=== PATIENT | female | born 1950 | race Caucasian/White ===

== ENCOUNTER 2018-04-11 08:06 | Outpatient (CLI) | payer MEDICARE | END 2018-04-11 08:07 | disposition home or self-care (01) | LOC: BICMAMMO 08:06 | PROVIDERS: ATTEND Family Medicine | DX: Z12.31 Encounter for screening mammogram for malignant neoplasm of breast (principal) | CPT/HCPCS: 77063; 77067 ==

== ENCOUNTER 2019-02-01 07:43 | Outpatient (CLI) | payer MEDICARE ==
--- NOTE | 2019-02-01 09:47 | CT ---
CHEST CT SCAN WITH IV CONTRAST: Date: 02/01/19 HISTORY: Follow-up pulmonary nodule, follow-up cough. COMPARISON: Chest PA and lateral dated 01/26/19. FINDINGS: Small hiatal hernia. Nodular focus seen on the prior chest x-ray probably represents calcification in the anterior costochondral cartilage of right rib. No evidence for a discrete right lung pulmonary n odule. There is, however, noted to be some very subtle ground glass opacity changes diffusely in the right l ower lobe laterally. Evidence for minimal pneumonia or pneumonitis. No mediastinal mass or adenopathy . The left lung is clear. Visualized upper abdomen is unremarkable. IMPRESSION: Some patchy ground-glass opacity changes in the lateral aspect of the right lower lobe, evidence for pneumonia or pneumonitis. No evidence for a pulmonary nodule. Small hiatal hernia. CODE T.
== END 2019-02-01 07:44 | disposition home or self-care (01) ==
LOC: CT 07:43
PROVIDERS: ATTEND Family Medicine
DX: R91.1 Solitary pulmonary nodule (principal); R91.8 Other nonspecific abnormal finding of lung field; K44.9 Diaphragmatic hernia without obstruction or gangrene
CPT/HCPCS: 71260; 82565

== ENCOUNTER 2019-04-12 08:13 | Outpatient (CLI) | payer MEDICARE ==
--- NOTE | 2019-04-12 09:34 | BD ---
DEXA Bone Density History: Post-menopausal osteoporosis screening. Lumbar Spine: BMD (g/cm2) L1 0.877 T-Score: -1.0 L2 0.916 T-Score: -1.0 L3 0.770 T-Score: -2.9 L4 0.918 T-Score: -1.3 L1-L4 0.871 T-Score: -1.6 Femoral Neck: 0.636 T-Score: -1.9 Total Femur: 0.812 T-Score: -1.1 Impression: Bone mineral density of the lumbar spine and femoral neck both indicate osteopenia. [id number] risk: Major osteoporotic fracture: 11% Hip fracture: 1.8% POS: TPC
== END 2019-04-12 08:14 | disposition home or self-care (01) ==
LOC: BICMAMMO 08:13
PROVIDERS: ATTEND Family Medicine
DX: Z13.820 Encounter for screening for osteoporosis (principal); Z78.0 Asymptomatic menopausal state; M81.0 Age-related osteoporosis without current pathological fracture; M85.859 Other specified disorders of bone density and structure, unspecified thigh
CPT/HCPCS: 77080

== ENCOUNTER 2019-08-22 08:18 | Outpatient (CLI) | payer MEDICARE ==
--- NOTE | 2019-08-22 09:23 | RAD ---
LEFT WRIST 3 VIEWS: HISTORY: Left wrist injury following a fall yesterday. FINDINGS: Arthrosis and degenerative changes including the trapezium 1st metacarpal joint. No evidence for acu te fracture or dislocation. IMPRESSION: Arthrosis and degenerative change. No fracture or dislocation. POS: TPC
== END 2019-08-22 08:19 | disposition home or self-care (01) ==
LOC: BICRAD 08:18
PROVIDERS: ATTEND Physician Assistant Medical
DX: S69.92XA Unspecified injury of left wrist, hand and finger(s), initial encounter (principal); M19.032 Primary osteoarthritis, left wrist

== ENCOUNTER 2020-08-12 09:13 | Outpatient (CLI) | payer MEDICARE ==
--- NOTE | 2020-08-12 09:52 | MMO ---
Bilateral MAMMO Bilat Screen [facility]. CLINICAL HISTORY: Patient is 69 years old and is seen for screening. The patient has no family history of breast cancer. The patient has no personal history of cancer. VIEWS: The views performed were: bilateral craniocaudal with tomosynthesis and bilateral mediolateral oblique with tomosynthesis. FILMS COMPARED: The present examination has been compared to a prior imaging study performed at [facility] on 04/11/2018. This study has been interpreted with the assistance of computer-aided detection. MAMMOGRAM FINDINGS: There are scattered fibroglandular densities. There are no suspicious masses, suspicious calcifications, or new areas of architectural distortion. IMPRESSION: THERE IS NO MAMMOGRAPHIC EVIDENCE OF MALIGNANCY. A ROUTINE FOLLOW-UP MAMMOGRAM IN 1 YEAR IS RECOMMENDED. THE RESULTS OF THIS EXAM WERE SENT TO THE PATIENT. ACR BI-RADS Category 1 - Negative MAMMOGRAPHY NOTE: 1. A negative mammogram report should not delay a biopsy if a dominant of clinically suspicious mass is present. 2. Approximately 10% to 15% of breast cancers are not detected by mammography. 3. Adenosis and dense breasts may obscure an underlying neoplasm. Reported by: LACIE ROBERTS MD Electonically Signed: [id number]
== END 2020-08-12 09:14 | disposition home or self-care (01) ==
LOC: BICMAMMO 09:13
PROVIDERS: ATTEND Family Medicine
DX: Z12.31 Encounter for screening mammogram for malignant neoplasm of breast (principal)
CPT/HCPCS: 77063; 77067

== ENCOUNTER 2021-09-23 12:56 | Outpatient (CLI) | payer MEDICARE | END 2021-09-23 12:57 | disposition home or self-care (01) | LOC: BICMAMMO 12:56 | PROVIDERS: ATTEND Family Medicine | DX: Z12.31 Encounter for screening mammogram for malignant neoplasm of breast (principal); Z13.820 Encounter for screening for osteoporosis; N95.9 Unspecified menopausal and perimenopausal disorder; M85.89 Other specified disorders of bone density and structure, multiple sites | CPT/HCPCS: 77063; 77067; 77080 ==

== ENCOUNTER 2024-03-13 08:11 | Outpatient (CLI) | payer OTHER | END 2024-03-13 08:12 | disposition home or self-care (01) | LOC: BICMAMMO 08:11 | PROVIDERS: ATTEND Family Medicine | DX: Z12.31 Encounter for screening mammogram for malignant neoplasm of breast (principal); Z13.820 Encounter for screening for osteoporosis; M85.89 Other specified disorders of bone density and structure, multiple sites; Z78.0 Asymptomatic menopausal state | CPT/HCPCS: 77063; 77067; 77080 ==

== ENCOUNTER 2024-04-17 08:41 | Outpatient (CLI) | payer OTHER | END 2024-04-17 08:42 | disposition home or self-care (01) | LOC: BICRAD 08:41 | PROVIDERS: ATTEND Family Medicine | DX: M54.50 Low back pain, unspecified (principal); M47.816 Spondylosis without myelopathy or radiculopathy, lumbar region | CPT/HCPCS: 72100 ==

== ENCOUNTER 2024-07-02 09:57 | Outpatient (CLI) | payer OTHER | END 2024-07-02 09:58 | disposition home or self-care (01) | LOC: BICCT 09:57 | PROVIDERS: ATTEND Orthopaedic Surgery | DX: M17.12 Unilateral primary osteoarthritis, left knee (principal); M25.462 Effusion, left knee; M25.762 Osteophyte, left knee ==

== ENCOUNTER 2024-07-03 14:40 | Outpatient (CLI) | payer OTHER ==
[2024-07-03 16:00] LABS: #Basophils Less than 0.03 10x3/uL (0.0-0.2); %Basophils 0.3 % (0.0-1.0); %Eosinophils 3.2 % (0.0-10.0); %Lymphocytes 16.5 % (21.0-51.0); %Monocytes 8.5 % (0.0-10.0); %Neutrophils 71.1 % (42.0-75.0); Hematocrit 39.7 % (36.0-47.0); Hemoglobin 13.3 g/dL (12.0-16.0); Mean Corpuscular HGB CONC 33.5 g/dL (32.0-36.0); Mean Corpuscular Volume 95.7 fL (78.0-98.0); Mean Platelet Volume 9.5 fL (7.4-10.4); Platelet Count 146 10x3/uL (130-400); RBC Distribution Width 13.2 % (11.5-14.5); Red Blood Cell (RBC) Count 4.15 mill/uL (4.20-5.40)
[2024-07-03 16:14] LABS: INR-International Normal Ratio 1.1
[2024-07-03 16:22] LABS: Anion Gap 14 mmol/L (10-20); BUN (Urea Nitrogen) 13 mg/dL (9.8-20.1); Calc. Creatinine Clearance 0 mL/min (70-130); Calcium 8.9 mg/dL (7.8-10.44); Carbon Dioxide 24 mmol/L (23-31); Chloride 105 mmol/L (98-107); Estimated GFR 90; Glucose 98 mg/dL (83-110); Potassium 3.6 mmol/L (3.5-5.1); Sodium 139 mmol/L (136-145)
[2024-07-03 16:57] LABS: Bilirubin Negative (Negative); Blood, Urine 2+ (Negative); Clarity Clear (Clear); Glucose, Urine (Dipstick) Normal (Negative); Ketone, Urine Negative (Negative); Leukocyte Negative Leu/uL (Negative); Nitrite Negative (Negative); Protein, Urine (Dipstick) 20 mg/dL (Neg-Trace); Specific Gravity, Urine 1.009 (1.002-1.036); Urobilinogen Normal mg/dL (Less than 2); pH, Urine 6.5 (5.0-9.0)
== END 2024-07-03 14:41 | disposition home or self-care (01) ==
LOC: LABBT 14:40
PROVIDERS: ATTEND Orthopaedic Surgery
DX: Z01.818 Encounter for other preprocedural examination (principal); M17.12 Unilateral primary osteoarthritis, left knee
CPT/HCPCS: 71046; 80048; 81003; 85025; 85610; 87081; 93005; 93010

== ENCOUNTER 2024-07-08 09:39 | Observation (INO) | payer OTHER ==
[2024-07-03 14:59] VITALS: BMI 28.7
[2024-07-08] MEDS ORDERED: fentaNYL 50 mcg/mL 1 mL Vial ONE ×2 (11:20→14:05)
[2024-07-08] MEDS ORDERED: Bupivacaine PF 0.5% 30 ML VIAL ONE (11:21)
[2024-07-08] MEDS ORDERED: Midazolam HCl 2 mg/2 ml Vial ONE (11:21)
[2024-07-08] MEDS ORDERED: Tranexamic Acid 1,000 MG/10 ML VIAL ONE ×2 (11:26→15:07)
[2024-07-08] MEDS ORDERED: Sodium Chloride 0.9% 100 ML ONE (11:27)
[2024-07-08] MEDS ORDERED: Vancomycin 1 GM/200 ML (FROZEN) BAG ONE (11:27)
[2024-07-08] MEDS ORDERED: Bupivacaine 0.25% HCL 30 ML VIAL ONE (12:00)
[2024-07-08] MEDS ORDERED: CEFAZOLIN 2 GM VIAL ONE (12:01)
[2024-07-08] MEDS ORDERED: Bupivacaine HCl 0.5%/Epinephrine 1:200,000/PF 30 ml Vial ONE (12:10)
[2024-07-08] MEDS ORDERED: fentaNYL PF 100 MCG/2 ML SYRINGE ONE (12:27)
[2024-07-08] MEDS ORDERED: Lidocaine 1% PF 5 ML VIAL ONE (12:27)
[2024-07-08] MEDS ORDERED: Dexamethasone 20 MG/5 ML VIAL ONE (12:27)
[2024-07-08] MEDS ORDERED: PROPOFOL 20 ML ONE (12:27)
[2024-07-08] MEDS ORDERED: Ondansetron PF 4 MG/2 ML Vial ONE (12:27)
[2024-07-08] MEDS ORDERED: traMADol HCl 50 MG TAB PO PRN ×2 (12:30)
[2024-07-08] MEDS ORDERED: Ondansetron PF 4 MG/2 ML Vial IVP PRN ×2 (12:30→14:35)
[2024-07-08] MEDS ORDERED: Ropivacaine 0.2% 550 ML 550 ML NERVE BLCK SCH (12:30)
[2024-07-08] MEDS ORDERED: Zolpidem Tartrate 5 MG TAB PO PRN ×2 (12:30→14:35)
[2024-07-08] MEDS ORDERED: fentaNYL 50 mcg/mL 1 mL Vial SLOW IVP PRN (12:30)
[2024-07-08] MEDS ORDERED: HYDROcodone/Acetaminophen 10/325 mg Tablet PO PRN ×2 (12:30)
[2024-07-08] MEDS ORDERED: Promethazine HCl 25 MG/ML VIAL IM PRN ×3 (12:30→14:35)
[2024-07-08] MEDS ORDERED: PHENYLEPHRINE-NS 100 MCG/ML 10 ML SYRINGE ONE (14:10)
[2024-07-08] MEDS ORDERED: Ondansetron HCl/PF 4 MG/2 ML Vial IVP PRN (14:34)
[2024-07-08] MEDS ORDERED: diphenhydrAMINE 25 MG CAP PO PRN (14:35)
[2024-07-08] MEDS ORDERED: Acetaminophen 325 MG TAB PO PRN (14:35)
[2024-07-08] MEDS ORDERED: Tranexamic Acid 1,000 MG in Sodium Chloride 0.9% 100 ML IVPB SCH (14:45)
[2024-07-08] MEDS ORDERED: Vancomycin 1.5 GM in Sodium Chloride 0.9% 250 ML 300 ML IVPB SCH (14:45)
[2024-07-08] MEDS: Sodium Chloride 0.9% 1,000 ML IV SCH (17:16)
[2024-07-08] MEDS: Ketorolac Tromethamine 30 MG (1 mL) VIAL IVP SCH (17:21)
[2024-07-08] MEDS: CEFAZOLIN 2 GM in Sodium Chloride 0.9% 100 ML IVPB SCH (20:20)
[2024-07-08] MEDS: Senokot S 8.6-50 MG TAB PO SCH (20:21)
[2024-07-08] MEDS: Ferrous Gluconate 324 MG TAB PO SCH (20:21)
[2024-07-08] MEDS: rOPINIRole HCl 0.25 MG TAB PO SCH (20:21)
[2024-07-08] MEDS: Aspirin 81 mg Enteric Coated Tablet PO SCH (20:21)
[2024-07-08] MEDS: Vancomycin 1.5 GRAM/300 ML BAG 1.5 GM in Premix 1 BAG IVPB SCH (23:36)
[2024-07-09 05:23] LABS: Hematocrit 35.1 % (36.0-47.0); Hemoglobin 11.9 g/dL (12.0-16.0); Mean Corpuscular HGB CONC 33.9 g/dL (32.0-36.0); Mean Corpuscular Hemoglobin 32.3 pg (27.0-31.0); Mean Corpuscular Volume 95.4 fL (78.0-98.0); Mean Platelet Volume 9.4 fL (7.4-10.4); Platelet Count 122 10x3/uL (130-400); RBC Distribution Width 13.3 % (11.5-14.5); Red Blood Cell (RBC) Count 3.68 mill/uL (4.20-5.40)
[2024-07-09] MEDS: Atorvastatin Calcium 20 MG TAB PO SCH (09:38)
[2024-07-09] MEDS: Multivitamin W/ Minerals 1 TAB PO SCH (09:38)
[2024-07-09] MEDS: FLU (Fluad Triv) TS24-25 (65UP)/MF59C/PF 45 MCG/0.5 ML Syringe IM ONE (10:02)
[2024-07-09 12:06] VITALS: TEMP 98.1
[2024-07-09 12:19] VITALS: BP 139/74
== END 2024-07-09 12:40 | disposition home or self-care (01) ==
LOC: SDC 09:39 → SURG B 15:57 → SDC 16:19
PROVIDERS: ADMIT Orthopaedic Surgery; ATTEND Orthopaedic Surgery
PROC: 0SRD0JZ Replacement of Left Knee Joint with Synthetic Substitute, Open Approach (ICD-10-PCS; principal; 2024-07-08)
PROC: 3E0T3BZ Introduction of Anesthetic Agent into Peripheral Nerves and Plexi, Percutaneous Approach (ICD-10-PCS; 2024-07-08)
DX: M17.12 Unilateral primary osteoarthritis, left knee (principal); M17.11 Unilateral primary osteoarthritis, right knee; M21.062 Valgus deformity, not elsewhere classified, left knee; M81.0 Age-related osteoporosis without current pathological fracture; E78.00 Pure hypercholesterolemia, unspecified; G47.00 Insomnia, unspecified; K64.8 Other hemorrhoids; Z87.59 Personal history of other complications of pregnancy, childbirth and the puerperium; Z79.1 Long term (current) use of non-steroidal anti-inflammatories (NSAID); Z79.82 Long term (current) use of aspirin; Z79.899 Other long term (current) drug therapy
CPT/HCPCS: 0055T; 27447; 64448; 36415; 85027; 90653; A4306; C1713; C1776; C1889; J0665; J1100; J1885; J2250; J2405; J2704; J2795; J3010; J3370; J3370-JW; J7030